=== PATIENT | female | born 1965 | race Two or more races ===

== ENCOUNTER 2020-03-27 07:22 | Outpatient (CLI) | payer OTHER ==
[~2020-03-27 07:22] MED LIST: BEPREVE; COLAGENO; KLONOPIN2 MG/TAB; LOTEMAX5 ML; REFRESH15 ML; RESTASIS32 EA
== END 2020-03-27 07:24 | disposition home or self-care (01) ==
LOC: NUCLEAR 07:22
PROVIDERS: ATTEND Internal Medicine Pulmonary Disease
DX: U07.1 COVID-19 (principal)